=== PATIENT | female | born 2000 | race African-American/Black ===

== ENCOUNTER 2024-11-26 10:36 | Outpatient (CLI) | payer BC, SELFPAY ==
--- NOTE | ~2024-11-26 | US_ITS ---
Pelvic ultrasound. Clinical History: First trimester , an area Technique: Realtime transabdominal and transvaginal scanning of the pelvis was performed. Color flow Doppler and Doppler spectral analysis were performed. Findings: The uterus is anteverted, and contains an intrauterine gestation. [place]-rump length of 2.9 cm corresponds to an estimated gestational age of 9 weeks 5 days. heart rate is 185 bpm. The right ovary measures 3.5 x 2.3 x 2.4 cm. No significant right ovarian or adnexal mass is seen. The left ovary measures 3.9 x 1.6 x 2.3 cm. No significant left ovarian or adnexal mass is seen. There is no evidence of free fluid in the cul de sac. Impression: Live intrauterine gestation, with estimated gestational age of 9 weeks 5 days. heart rate is 18 5 bpm. [facility] WILLIAM is 06/26/2025. Reviewed, dictated and finalized at [facility]. Impression: Live intrauterine gestation, with estimated gestational age of 9 weeks 5 days. heart rate is 185 bpm. [facility] WILLIAM is 06/26/2025.
--- OUTSIDE RECORDS SUMMARY | 2024-11-26 10:49 | XMS_ITS | Clinical Summary ---
Author Organization [facility] Address [address] [place] [address], [place] [address] Phone Care Team Providers Care Marketing Business Analyst Name Role Phone Aretha Tello MD Primary Care Provider [phone] Allergies No known active allergies Social History Tobacco Use Types Packs/Day Years Used Date Smoking Tobacco: Never Passive Smoke Exposure: Never Smokeless Tobacco: Never Tobacco Cessation:Counseling Given: No Alcohol Use Standard Drinks/Week Comments Yes 0 (1 standard drink = 0.6 oz pur e alcohol) Comments Unknown Sex and Gender Information Value Date Recorded Sex Assigned at Not on file Legal Sex Female 2:04 PM CDT Gender Identity Not on file Sexual Orientation Not on file Last Filed Vital Signs Vital Sign Reading Time Taken Comments Blood Pressure - - Pulse - - Temperature - - Respiratory Rate - - Oxygen Saturation - - Inhaled Oxygen Concentration - - Weight 88.5 kg (195 lb) 11/07/2023 3:19 PM CDT Height 170.2 cm (5' 7 ) 11/07/2023 3:19 PM CDT Body Mass Index 30.54 11/07/2023 3:19 PM CDT Plan of Treatment Health Maintenance Due Date Last Done Comments Influenza Vaccine (Season Ended) 2025 04/13/20 21 Insurance [facility] Care Teams Marketing Business Analyst Relationship Specialty Start Date End Date Aretha Tello MD [address] [facility] [address] [place] [address] PCP - General 11/07/23
--- OUTSIDE RECORDS SUMMARY | 2024-11-26 10:49 | XMS_ITS | Referral Summary ---
Author Organization [facility] Address [address] [place] [address] Care Team Providers Care Radar Scientist Name Role Phone Pcp Outside [facility], Unknown Primary Care Provider U navailable Immunizations Immunization Administration Dates Next Due HPV 9-Valent 02/08/2017 Meningococcal Conjugate MCV4P (Menactra) 014 Tdap 04/09/2014 Social History Tobacco Use Types Packs/Day Years Used Date Smoking Tobacco: Never Assessed Inadequate Housing Answer Date Recorded Social Determinants: Housing (Overall Score Help er) 0 02/26/2019 Comments Unknown Sex and Gender Information Value Date Recorded Sex Assigned at Not on file Legal Sex Female 12:51 PM CDT Gender Identity Not on file Sexual Orientation Not on file Last Filed Vital Signs Vital Sign Reading Time Taken Comments Blood Pressure 98/56 04/25/2018 12:55 PM CDT Pulse 69 04/25/2018 12:55 PM CDT Temperature 37.2 C (98.9 F) 04/25/2018 12:55 PM CDT Respiratory Rate 17 04/25/2018 12:55 PM CDT Oxygen Saturation 100% 04/25/2018 12:55 PM CDT Inhaled Oxygen Concentration - - Weight 63 kg (139 lb) 04/25/2018 12:55 PM CDT Height 172.1 cm (5' 7.75 ) 04/25/2018 12:55 PM C DT Body Mass Index 21.29 04/25/2018 12:55 PM CDT Plan of Treatment Not on file Care Teams Radar Scientist Relationship Specialty Start Date End Date Pcp Outside [facility], Unknown NO KNOWN ADDRESS ON FILE PCP - General 11/25/23
--- OUTSIDE RECORDS SUMMARY | 2024-11-26 10:49 | XMS_ITS | Clinical Summary ---
Author Organization [facility] Address [address] [place] [address] Care Team Providers Care Glue Size Machine Operator Name Role Phone Nonstaff, Provider Primary Care Provider Unavail able Allergies No known active allergies Medications No known medications Social History Tobacco Use Types Packs/Day Years Used Date Smoking Tobacco: Never Alcohol Use Standard Drinks/Week Comments No 0 (1 standard drink = 0.6 oz pur e alcohol) Comments No Sex and Gender Information Value Date Recorded Sex Assigned at Not on file Legal Sex Female 5:54 AM REFRIGERATION TECHNICIAN Gender Identity Not on file Sexual Orientation Not on file Last Filed Vital Signs Vital Sign Reading Time Taken Comments Blood Pressure - - Pulse 86 07/21/2013 6:11 AM REFRIGERATION TECHNICIAN Temperature 37.1 C (98.8 F) 07/21/2013 6:11 AM REFRIGERATION TECHNICIAN Respiratory Rate 18 07/21/2013 6:11 AM REFRIGERATION TECHNICIAN Oxygen Saturation 98% 07/21/2013 6:11 AM REFRIGERATION TECHNICIAN Inhaled Oxygen Concentration - - Weight 52 kg (114 lb 10.2 oz) 07/21/2013 5:54 AM REFRIGERATION TECHNICIAN Height - - Body Mass Index - - Plan of Treatment Not on file Insurance [employer] PPO WITH SUITCASE Care Teams Glue Size Machine Operator Relationship Specialty Start Date End Date Nonstaff, Provider PCP - General 07/21/13
--- OUTSIDE RECORDS SUMMARY | 2024-11-26 10:49 | XMS_ITS | Continuity of Care Document ---
Author Name [facility] Organization [facility] Care Team Providers Care Workforce Management Manager Name Role Phone [facility] Unavailable Unavailable Problems Combined list of problems from Department of Defense and Veterans Affairs facilities. It does not include entries that were removed or entered in error. Problem Status Onset Date Problem Type Date of Resolution Comments Source Patellofemoral disorders, left knee Active Condition DoD Pain in left knee Active Condition DoD Allergies, Adverse Reactions, Alerts Combined list of allergies from Department of Defense and Veterans Affairs facilities. It does not include entries that were removed or entered in error. Substance Category Reaction Severity Reaction type Status Date Reported Comments Source No Known Allergies Drug allergy (disorder) active 04/13/2021 [facility] Immunizations Combined list of available immunizations from the Department of Defense and Veterans Affairs facilities. Immunization Series Date Given Administered By Site Reaction Lot Number CVX Code Drug Trimming Machine Set Up Operator Status Comments Source hepatitis B pediatric/ado lescent 2021 [id number] GlaxoSmithKli ne complet ed hepatitis B pediatric /adolesce nt 11/28/21 Given Ambulat ory Pharmac y Human Papillomaviru s 9-valent vaccine 2020 zzAzeb ht Arm [id number] Merck & Company Inc complet ed Human Papilloma virus 9-valent vaccine 05/18/21 Given Ambulat ory Pharmac y poliovirus vaccine, inactivated 2020 zzRig ht Arm [id number] sanofi pasteur complet ed polioviru s vaccine, inactivat ed 05/18/21 Given Ambulat ory Pharmac y hepatitis B pediatric/ado lescent 2020 Robert t Arm [id number] 08 GlaxoSmithKli ne complet ed hepatitis B pediatric /adolesce nt 05/18/21 Given Ambulat ory Pharmac y hepatitis B vaccine, pediatric or pediatric/ado lescent dosage 2 2020 JONAH SIMS [id number] 08 NutritionixKline (SKB) complet ed hepatitis B vaccine, pediatric or pediatric /adolesce nt dosage DoD poliovirus vaccine, inactivated 1 2020 JONAH SIMS [id number] 10 Sanofi Pasteur (PMC) complet ed polioviru s vaccine, inactivat ed DoD Human Papillomaviru s 9-valent vaccine 1 2020 JONAH SIMS [id number] 165 Merck (MSD) complet ed Human Papilloma virus 9-valent vaccine DoD meningococcal A,C,Y,W-135 (MCV4P) 2020 zzLef t Arm [id number] 114 sanofi pasteur complet ed meningoco ccal A,C,Y,W-1 35 (MCV4P) 04/13/21 Given Ambulat ory Pharmac y adenovirus vaccine, live 2020 [id number] 143 Unknown complet ed adenoviru s vaccine, live 04/13/21 Given Ambulat ory Pharmac y tetanus, diphtheria, acellular pertu is 2020 zzRig ht Arm [id number] 115 GlaxoSmithKli ne complet ed tetanus, diphtheri a, acellular pertussis 04/13/21 Given Ambulat ory Pharmac y influenza, injectable, quadrivalent- pf 2020 zzRig ht Arm [id number] 150 GlaxoSmithKli ne complet ed influenza , injectabl e, quadrival ent-pf 04/13/21 Given Ambulat ory Pharmac y hepatitis B pediatric/ado lescent 2020 zzLef t Arm [id number] 08 GlaxoSmithKli ne complet ed hepatitis B pediatric /adolesce nt 04/13/21 Given Ambulat ory Pharmac y hepatitis B vaccine, pediatric or pediatric/ado lescent dosage 1 2020 JONAH SIMS [id number] 08 QVPN (SKB) complet ed hepatitis B vaccine, pediatric or pediatric /adolesce nt dosage DoD meningococcal polysaccharid e (groups A, C, Y and W-135) diphtheria toxoid conjugate vaccine (MCV4P) 1 2020 JONAH SIMS [id number] 114 Sanofi Pasteur (PMC) complet ed meningoco ccal polysacch aride (groups A, C, Y and W-135) diphtheri a toxoid conjugate vaccine (MCV4P) DoD tetanus toxoid, reduced diphtheria toxoid, and acellular pertu is vaccine, adsorbed 1 2020 JONAH SIMS [id number] 115 SmithKline (SKB) complet ed tetanus toxoid, reduced diphtheri a toxoid, and acellular pertussis vaccine, adsorbed DoD Adenovirus, type 4 and type 7, live, oral 1 2020 JONAH SIMS [id number] 143 Other (OTH) complet ed Adenoviru s, type 4 and type 7, live, oral DoD Influenza, injectable, quadrivalent, preservative free 1 2020 JONAH SIMS [id number] 150 SmithKline (SKB) complet ed Influenza , injectabl e, quadrival ent, preservat fred free DoD SARS-CoV-2 (COVID-19) Ad26 vaccine, rec 2020 Body, whole [id number] complet ed SARS-CoV- 2 (COVID-19 ) Ad26 vaccine, rec 12/06/20 Given Ambulat ory Pharmac y SARS-COV-2 (COVID-19) vaccine, vector non-replicati ng, recombinant spike protein-Ad26, preservative free, 0.5 mL 1 [id number] 212 Debra (JSN) comple t ed SARS-COV- 2 (COVID-19 ) vaccine, vector non-repli cating, recombina nt spike protein-A d26, preservat fred free, 0.5 mL DoD Encounters Combined list of: 1) Encounters from Department of Veterans Affairs facilities going backup to the last 18 months, not all VA inpatient encounters are included; 2) Encounters from the Department of Defense facilities going backup to 280 months. Location Location Details Encounter Type Encounter Number Reason For Visit Attending Provider ADM Date DC Date Status Disposition Source [facility](Au diology [facility] 1523) OUTPATIENT [id number] FRANCIA GAMBOA 04/10 Released w/o Limitations [facility]( Audiolo gy [facility] 1523) [facility](Op tometry [facility] 1523) OUTPATIENT [id number] ROSENDA LEY 04/10 Released w/o Limitations [facility]( Optomet ry [facility] 1523) [facility](Fe male Screening 1523) OUTPATIENT [id number] ACUTE LIZABETH GILBERT 04/13 Released w/o Limitations [facility] Fed [facility]( Female Screeni ng 1523) [facility] [place](Im munizatio n 1523) OUTPATIENT [id number] Notes Entered by: ALISON NOEL 13 Apr 2021 1333 ------- ------- ------- ------- -- P4 BEN Merino 04/13 Released w/o Limitations [facility]( Immuniz ation 1523) [facility] [place](10 07 After Hours Treatment ) TELE CONSULT [id number] Notes Entered by: SAMANTA MONTAÑO 14 Apr 2021 1124 ------- ------- ------- ------- -- Please recall recruit to discuss lab results and f/u. KARON MCMANUS 04/14 Released to Self Care [facility]( 1007 After Hours Treatme nt) [facility] [place]([facility] OUTPATIENT [id number] Notes Entered by: KARON ALANIS 16 Apr 2021 1233 ------- ------- ------- ------- -- LAB RESULTS KARON MCMANUS 04/16 Released w/o Limitations [facility](Im munizatio n 1523) OUTPATIENT [id number] Notes Entered by: ALISON NOEL 18 May 2021 1018 ------- ------- ------- ------- -- 5-2 Immuniz atBEN Wright 05/18 Released w/o Limitations [facility]( Immuniz ation 1523) [facility](We ekend [facility] Sick Call 1007) OUTPATIENT [id number] Notes Entered by: GRACE BAI 23 May 2021 0735 ------- ------- ------- ------- -- Yeast Infecti on SCOUT PARKER E 05/23 Released w/o Limitations [facility]( Sick Call 1007) [facility]( ekend [facility] Sick Call 1007) OUTPATIENT [id number] Notes Entered by: Kaitlin TUCKER 31 May 2021 0701 ------- ------- ------- ------- -- POSSIBL E YEAST INFECTI ON x 2 WEEKS KEELY SIERRA 05/31 Released w/o Limitations [facility]( Sick Call 1007) [facility] [place] T1) OUTPATIENT [id number] COUGH WITH CONGEST ION ABENA HUTTON 07/13 Sick at Home/Quarter s [facility] [place] T1) [facility] [place] T1) TELE CONSULT [id number] ABENA HUTTON 07/14 [facility] [place] T1) [facility] [place] T1) TELE CONSULT [id number] Notes Entered by: TREE LAGUNAS 20 Jul 2021 1401 ------- ------- ------- ------- -- VM from patient TREE LAGUNAS 07/20 Sick at Home/Quarter s [facility] [place] T1) [facility] [place] T1) OUTPATIENT [id number] LEFT KNEE PAIN > 2WEEKS PADMINI PADILLA 08/20 Released w/o Limitations [facility] [place] [facility]) [facility](Physica [facility] Therapy [facility]) OUTPATIENT [id number] PAIN IN LEFT KNEE VIANEY HAUSER 09/04 Released with Work/Duty Limitations [facility](Phy sical Therapy [facility]) [facility] [place] T1) OUTPATIENT [id number] DISCUSS CONTROL PADMINI PADILLA 09/08 Released w/o Limitations [facility] [place] T1) [facility](Program Proposals Coordinator Team 3 [facility]) OUTPATIENT [id number] IDALMIS CACERES 09/11 Released w/o Limitations [facility](Phy s Ther Team 3 [facility]) [facility](Program Proposals Coordinator Team 3 [facility]) OUTPATIENT [id number] CAROL LANIER 09/17 Released w/o Limitations [facility](Phy s Ther Team 3 [facility]) [facility] [place] T1) OUTPATIENT [id number] Light duty chit extensi on- L knee pain ANNIABENA PAUL KARON 09/21 Released with Work/Duty Limitations [facility] [place] T1) [facility](Program Proposals Coordinator Team 3 [facility]) OUTPATIENT [id number] CELINA VUONG V 09/24 Released w/o Limitations [facility](Phy s Ther Team 3 [facility]) [facility](Physica [facility] Therapy [facility]) OUTPATIENT [id number] f/u knee ANALISAVIANEY BRAVO 09/30 Released w/o Limitations [facility](Phy sical Therapy [facility]) [facility](Program Proposals Coordinator Team 3 [facility]) OUTPATIENT [id number] IDALMIS CACERES 10/09 Released w/o Limitations [facility](Phy s Ther Team 3 [facility]) [facility](Program Proposals Coordinator Team 3 [facility]) OUTPATIENT [id number] CAROL LANIER 10/12 Released w/o Limitations [facility](Phy s Ther Team 3 [facility]) [facility](Immuniz ation [place]) OUTPATIENT [id number] Notes Entered by: GARY KEY 21 Oct 2021 1417 ------- ------- ------- ------- -- Record Review PHYLLIS STEVENSON 10/21 Released w/o Limitations [facility](Imm unizati on [place]) [facility](Program Proposals Coordinator Team 3 [facility]) OUTPATIENT [id number] IDALMIS CACERES 10/22 Released w/o Limitations [facility](Phy s Ther Team 3 [facility]) [facility](Physica [facility] Therapy [facility]) TELE CONSULT [id number] Notes Entered by: Juan Miguel GALLEGOS 26 Oct 2021 0800 ------- ------- ------- ------- -- No show 1/2 PARKER GALLEGOS 10/26 Other Not Elsewhere Classified [facility](Phy [facility]ical Therapy [facility]) [facility](Physica [facility] Therapy [facility]) OUTPATIENT [id number] f/u L knee VIANEY HAUSER 10/28 Released w/o Limitations [facility](Phy [facility]ical Therapy [facility]) Procedures Combined list of: 1) Procedures from Department of Veterans Affairs facilities going back up to thelast 18 months, not all VA non-surgical procedures are included; 2) All procedures from the Department of Defense facilities. Procedure Procedure Type Code Date Perfomer Comments Sourc e No data available for this section Ambulato ry Pharmacy Threshold Audiogram (Pure Tone) Automated Threshold Audiogram (Pure Tone) Automated 0208T FRANCIA GAMBOA Visual Function Screening Visual Function Screening [id number] ROSENDA LEY [facility] Patient education, not otherwise cla ified, non-physician provider, group, per se LIZABETH Freitas [facility] Hepatitis B Vaccine (Active); To 11 Years Hepatitis B Vaccine (Active); [place] To 11 Years [address]0225 JONAH SIMS Hep B, adolescent or pediatric (19yr and younger); Series #: 1; 0.5 mL; IM; Left Arm; Mfg: QVPN; Lot: [id number]; VIS given (Nasir: 03/01/19; 10/17/19 - Multiple). [facility] Meningococcal Polysacch Diphtheria Toxoid Conjugate Vaccine Meningococcal Polysacch Diphtheria Toxoid Conjugate Vaccine 88122 JONAH SIMS. Meningococcal MCV4P (Menactra); Series #: 1; 0.5 mL; IM; Left Arm; Mfg: Sanofi Pasteur; Lot: [id number]; VIS given (Nasir: 02/20/2021). [facility] Tdap Vaccine Tdap Vaccine 92138 JONAH SIMS. Tdap; Series #: 1; .5 mL; IM; Right Arm; Mfg: QVPN; Lot: [id number]; VIS given (Nasir: 02/20/2021). [facility] Immunization Administration One Vaccine Immunization Administration One Vaccine 72446 JONAH SIMS. John Immunization Administration Each Additional Vaccine Immunization Administration Each Additional Vaccine 54367 JONAH SIMS Vaccines Adenovirus Type 4 Live, For Oral Use Vaccines Adenovirus Type 4 Live, For Oral Use 71318 JONAH SIMS Vaccines Adenovirus Type 7 Live, For Oral Use Vaccines Adenovirus Type 7 Live, For Oral Use [address] Supervised Injection Intramuscular Antibiotic Supervised Injection Intramuscular Antibiotic 61042 JONAH SIMS Injection, penicillin g benzathine, 100,000 units JONAH SIMS Hepatitis B Vaccine (Active); To 11 Years Hepatitis B Vaccine (Active); To 11 Years 55323 JONAH SIMS Hep B, adolescent or pediatric (19yr and younger); Series #: 2; 0.5 mL; IM; Left Arm; Mfg: SmithKline; Lot: [id number]; VIS given (Nasir: 03/01/19; 10/17/19 - Multiple). [facility] Vaccines Viral Polio, Inactivated (Salk) Vaccines Viral Polio, Inactivated (Salk) 87938 JONAH SIMS IPV; Series #: 1; 0.5 mL; SC; Right Arm; Mfg: Sanofi Pasteur; Lot: [id number]; VIS given (Nasir: 02/20/21; 10/17/19 - Multiple). [facility] Waiver services; not otherwise specified (NOS) ABENA HUTTON [facility] Physical Therapy: ___ Se ion Segments, 15 Minutes Each Physical Therapy: ___ Session Segments, 15 Minutes Each [id number] VIANEY HAUSER [facility] Physical Therapy: ___ Se ion Segments, 15 Minutes Each Physical Therapy: ___ Session Segments, 15 Minutes Each [id number] CAROL LANIER L 40` [facility] Modalities Vasopneumatic Device Modalities Vasopneumatic Device 32633 CAROL LANIER L [facility] Physical Therapy: ___ Se ion Segments, 15 Minutes Each Physical Therapy: ___ Session Segments, 15 Minutes Each [id number] BJ VUONGLE V x 30 mins [facility] Physical Medicine Physical Therapy Re-Evaluation Physical Medicine Physical Therapy Re-Evaluation [id number] VIANEY HAUSER [facility] Phys Therapy Education Self Care Training - Per 15 Minutes Phys Therapy Education Self Care Training - Per 15 Minutes [id number] VIANEY HAUSER [facility] IMMUNIZATION ADMINISTRATION (INCLUDES PERCUTANEOUS, INTRADERMAL, SUBCUTANEOUS, OR INTRAMUSCULAR INJECTIONS); 1 VACCINE (SINGLE OR COMBINATION VACCINE/TOXOID) 2020 [facility] PATIENT EDUCATION, NOT OTHERWISE CLASSIFIED, NON-PHYSICIAN PROVIDER, GROUP, PER SESSION 2020 [facility] INJECTION, PENICILLIN G BENZATHINE, 100,000 UNITS 2020 [facility] VIS FUNCT SCREEN,AUTOMAT/SE [place]-AUTOMAT BILAT QUANT DETERM VISUAL ACUITY,OCULAR ALIGN,COLOR VISION,PSEUDOISOC HROMAT PLATES,& FIELD VIS (MAY INC ALL/SOME SCRN DETERM FOR CONTRAST SENSITIV,VIS UND GLARE) 2020 [facility] PURE TONE AUDIOMETRY (THRESHOLD), AUTOMATED; AIR ONLY 2020 [facility] SELF-CARE/HOME MANAGMENT TRAIN (EG,ACT OF DAILY LIVING (ADL) &COMPENSAT TRAIN,MEAL PREPARATION,SAFET Y PROCS,AND INSTRUCT IN USE OF ASST TECHNOLOGY DEV/ADPT EQUIP) DIR ONE-ON-ONE CONT,EA 15 MINUTES 2021 [facility] THERAPEUTIC PROCEDURE, 1 OR MORE AREAS, EACH 15 MINUTES; THERAPEUTIC EXERCISES TO DEVELOP STRENGTH AND ENDURANCE, RANGE OF MOTION AND FLEXIBILITY 2021 [facility] THERAPEUTIC PROCEDURE, 1 OR MORE AREAS, EACH 15 MINUTES; THERAPEUTIC EXERCISES TO DEVELOP STRENGTH AND ENDURANCE, RANGE OF MOTION AND FLEXIBILITY 2021 [facility] THERAPEUTIC PROCEDURE, 1 OR MORE AREAS, EACH 15 MINUTES; THERAPEUTIC EXERCISES TO DEVELOP STRENGTH AND ENDURANCE, RANGE OF MOTION AND FLEXIBILITY 2021 [facility] THERAPEUTIC PROCEDURE, 1 OR MORE AREAS, EACH 15 MINUTES; THERAPEUTIC EXERCISES TO DEVELOP STRENGTH AND ENDURANCE, RANGE OF MOTION AND FLEXIBILITY 2021 [facility] THERAPEUTIC PROCEDURE, 1 OR MORE AREAS, EACH 15 MINUTES; THERAPEUTIC EXERCISES TO DEVELOP STRENGTH AND ENDURANCE, RANGE OF MOTION AND FLEXIBILITY 2021 [facility] APPLICATION OF A MODALITY TO 1 OR MORE AREAS; VASOPNEUMATIC DEVICES 2021 [facility] THERAPEUTIC PROCEDURE, 1 OR MORE AREAS, EACH 15 MINUTES; THERAPEUTIC EXERCISES TO DEVELOP STRENGTH AND ENDURANCE, RANGE OF MOTION AND FLEXIBILITY 2021 [facility] THERAPEUTIC PROCEDURE, 1 OR MORE AREAS, EACH 15 MINUTES; THERAPEUTIC EXERCISES TO DEVELOP STRENGTH AND ENDURANCE, RANGE OF MOTION AND FLEXIBILITY 2021 [facility] WAIVER SERVICES; NOT OTHERWISE SPECIFIED (NOS) 2020 [facility] Social History Combined list of available smoking, tobacco, and other social history from Department of Defense and Veterans Affairs facilities. Social History Type Response Date Comment Sour e This section is an empty social history section. [facility]D Assessment and Plan Combined list of future care activities from Department of Defense and Veterans Affairs facilities (e.g., assessment and plan notes, appointments, orders, and referrals). Additional future care activities may be listed in the Plan of Care section. Result Assessment and Plan Date Source Assessment and Plan No data available for this section 11/26/2024 Ambulatory Pharmacy Functional Status Combined list of recent functional and cognitive assessments recorded at Department of Defense and Veterans Affairs ([facility] Functional [place] Measurement (FIM) Scale: 1 = Total Assistance (Subject = 0% +), 2 = Maximal Assistance (Subject = 25% +), 3 = Moderate Assistance (Subject = 50% +), 4 = Minimal Assistance (Subject = 75% +), 5 = Supervision, 6 = Modified [place] (Device), 7 = Complete [place] (Timely, Safely). Assessment Date/Time Source Assessment Type Assessment Skill Assessment Score Assessment Details No data available for this section
--- OUTSIDE RECORDS SUMMARY | 2024-11-26 10:49 | XMS_ITS | Clinical Summary ---
Author Organization [facility] Address [address] [place] [address] Care Team Providers Care Slitting Machine Feeder Name Role Phone Unavailable Primary Care Provider Unavailabl e Social History Tobacco Use Types Packs/Day Years Used Date Smoking Tobacco: Never Assessed Comments Unknown Sex and Gender Information Value Date Recorded Sex Assigned at Not on file Legal Sex Female 9:56 PM EST Gender Identity Not on file Sexual Orientation Not on file Plan of Treatment Not on file
--- OUTSIDE RECORDS SUMMARY | 2024-11-26 10:49 | XMS_ITS | Clinical Summary ---
Author Organization [facility] Address [address] [place] [id number] Care Team Providers Care Bombsight Specialist Name Role Phone Pcp Outside [facility], Unknown Primary Care Provider U navailable [...] 04/25/2018 12:55 PM CDT Plan of Treatment Health Maintenance Due Date Last Done Comments Depression Screening 2014 Varicella Vaccine (1 of 2 - 13+ 2-dose series) 2015 HPV Vaccine (2 - 2-dose series) 08/11/2017 7 Meningococcal Serogroup B Va ccine (1 of 2 - Standard) 2018 Chlamydia and Gonorrhea Scre ening (if sexually active) 2020 Hepatitis B Vaccine (1 of 3 - 19+ 3-dose series) 2021 COVID-19 Vaccine ( - 2023-2 5 season) 2024 DTaP/Tdap/Td Vaccine (2 - Td or Tdap) 04/09/2024 04/09/2014 Influenza Vaccine (Season Ended) 2025 Meningococcal Vaccine Aged Out 04/09/2014 No yojana lyssa eligible based on patient's age to complete this topic Hepatitis A Vaccine Aged Out No longe r eligible based on patient's age to complete this topic Pneumococcal Vaccine 0-49 Aged Out No longer eligible based on patient's age to complete this topic Care Teams Bombsight Specialist Relationship Specialty Start Date End Date Pcp Outside [facility], Unknown NO KNOWN ADDRESS ON FILE PCP - General 11/25/23
== END 2024-11-26 10:37 | disposition home or self-care (01) ==
PROVIDERS: Visit Provider Nurse Practitioner Obstetrics & Gynecology
DX: N91.2 Amenorrhea, unspecified (principal)
CPT/HCPCS: 76801; 76817

== ENCOUNTER 2025-01-14 15:51 | Outpatient (CLI) | payer BC, SELFPAY ==
--- OUTSIDE RECORDS SUMMARY | 2025-01-14 15:54 | XMS_ITS | Clinical Summary ---
Author Organization [facility] Address [address] [place] [id number] Care Team Providers Care Train Caller Name Role Phone Pcp Outside [facility], Unknown Primary Care Provider U navailable [...] 12:55 PM CDT Height 172.1 cm (5' 7.75) 04/25/2018 12:55 PM C DT Body Mass [...] age to complete this topic Care Teams Train Caller Relationship Specialty Start Date End Date Pcp Outside [facility], Unknown NO KNOWN ADDRESS ON FILE PCP - General 11/25/23
--- OUTSIDE RECORDS SUMMARY | 2025-01-14 15:54 | XMS_ITS | Referral Summary ---
Author Organization [facility] Address [address] [place] [id number] Care Team Providers Care President [employer] Name Role Phone Pcp Outside [facility], Unknown Primary Care Provider U navailable [...] of Treatment Not on file Care Teams President [employer] Relationship Specialty Start Date End Date Pcp Outside [facility], Unknown NO KNOWN ADDRESS ON FILE PCP - General 11/25/23
--- OUTSIDE RECORDS SUMMARY | 2025-01-14 15:54 | XMS_ITS | Clinical Summary ---
Author Organization [facility] Address [address] [place] [id number] Care Team Providers Care Rehabilitation Psychologist Name Role Phone Nonstaff, Provider Primary Care [...] on file Legal Sex Female 5:54 AM [employer] Gender Identity Not on file Sexual Orientation Not on file Last Filed Vital Signs Vital Sign Reading Time Taken Comments Blood Pressure - - Pulse 86 07/21/2013 6:11 AM [employer] Temperature 37.1 C (98.8 F) 07/21/2013 6:11 AM [employer] Respiratory Rate 18 07/21/2013 6:11 AM [employer] Oxygen Saturation 98% 07/21/2013 6:11 AM [employer] Inhaled Oxygen Concentration - - Weight 52 kg (114 lb 10.2 oz) 07/21/2013 5:54 AM [employer] Height - - Body Mass Index - - Plan of Treatment Not on file Insurance [employer] PPO WITH SUITCASE Care Teams Rehabilitation Psychologist Relationship Specialty Start Date End Date Nonstaff, Provider PCP - General 07/21/13
--- OUTSIDE RECORDS SUMMARY | 2025-01-14 15:54 | XMS_ITS | Clinical Summary ---
Author Organization [facility] Address [address] [place] [address] Care Team Providers Care Display Associate Name Role Phone Unavailable Primary Care Provider [...]
[2025-01-14 16:15] LABS: Add Urine Microscopic? YES; Appearance Urine Clear (Clear); Bacteria Urine None Seen /hpf; Bilirubin Urine Negative (Negative); Blood Urine Negative (Negative); Color Urine Yellow (Yellow); Glucose Urine UA Negative (Negative); Ketones Urine Negative (Negative); Leukocyte Esterase Ur 1+ LEU/UL (Negative); Nitrate Urine Negative (Negative); Non Pathogenic Casts 0-2; Protein Urine Negative (Negative); RBC Urine 0-2 /hpf (0-2); Specific Grav Ur 1.011 (1.001-1.035); Squamous Epithelial Cell Urine None Seen /hpf (Few)
[2025-01-14 16:54] LABS: Thyroid Stimulating Hormone 0.588 uIU/mL (0.465-4.680)
== END 2025-01-14 15:52 | disposition home or self-care (01) ==
PROVIDERS: PCP Obstetrics & Gynecology; Visit Provider Obstetrics & Gynecology
DX: Z34.90 Encounter for supervision of normal pregnancy, unspecified, unspecified trimester (principal)
CPT/HCPCS: 36415; 81001; 84443; 87086